=== PATIENT | female | born 1980 | race Caucasian/White ===

== ENCOUNTER 2019-11-28 20:15 | Emergency (ER) | payer OTHER ==
[~2019-11-28] VITALS: Ht 162.6 cm; Wt 104.3 kg
[2019-11-28 21:34] VITALS: BP 146/93
== END 2019-11-28 21:36 | disposition home or self-care (01) ==
LOC: M.ERS 20:15
DX: S61.011A Laceration without foreign body of right thumb without damage to nail, initial encounter (principal); W26.8XXA Contact with other sharp object(s), not elsewhere classified, initial encounter; Y93.89 Activity, other specified; Y92.89 Other specified places as the place of occurrence of the external cause; Y99.8 Other external cause status

== ENCOUNTER 2020-06-30 05:04 | Emergency (ER) | payer OTHER ==
[~2020-06-30] VITALS: Ht 157.5 cm; Wt 104.3 kg
[2020-06-30 05:37] LABS: URINE BLOOD 3+ (Negative); URINE COLOR YELLOW; URINE GLUCOSE-RANDOM NEGATIVE (Negative); URINE KETONES 1+ (Negative); URINE LEUKOCYTES-REFLEX 1+ (Negative); URINE PROTEIN 1+ (Negative); URINE SPECIFIC GRAVITY 1.025 (1.005-1.030); URINE UROBILINOGEN 0.2 E.U./dl (0.2-1.0)
[2020-06-30 06:11] LABS: URINE BILIRUBIN 1+ (Negative); URINE NITRITE-REFLEX POSITIVE (Negative)
[2020-06-30 06:12] LABS: URINE CLARITY SL CLOUDY
[2020-06-30 06:15] LABS: BACTERIA-REFLEX >30 Many /HPF (None Seen); CASTS None Seen /LPF (None Seen); CRYSTALS None Seen /LPF (None Seen); MUCUS 4-6 Moderate strn/LPF (None Seen); SQUAMOUS 0-3 Few /LPF (0-3); URINE WBC-REFLEX >25 Many /HPF (0-5); WBC CLUMPS Moderate (None Seen)
[2020-06-30] MEDS ORDERED: CIPROFLOXACIN500 M1 PO (06:40)
[2020-06-30 07:48] VITALS: BP 125/72
== END 2020-06-30 07:49 | disposition home or self-care (01) ==
LOC: M.ERS 05:04
PROVIDERS: Emergency Medicine
DX: N39.0 Urinary tract infection, site not specified (principal); R50.9 Fever, unspecified; Z20.822 Contact with and (suspected) exposure to COVID-19